=== PATIENT | male | born 1975 | race Caucasian/White ===

== ENCOUNTER 2017-12-16 01:49 | Observation (INO) | payer OTHER, SELFPAY ==
[2017-12-16] VITALS (12 sets, daily range): BP systolic 121–151; BP diastolic 64–86; PULSE 61–82; RESP 16–23; TEMP 36.6–36.9; O2SAT 92–99; BMI 51.2; BMI 50.0
--- NOTE | 2017-12-16 02:00 | EKG12_ITS ---
Test Reason : CP Blood Pressure : / mmHG Vent. Rate : 072 BPM Atrial Rate : 072 BPM P-R Int : 194 ms QRS Dur : 096 ms QT Int : 382 ms P-R-T Axes : 048 023 016 degrees QTc Int : 418 ms Normal sinus rhythm Normal ECG Confirmed by AILEEN FARMER MD ([id number]), web editor KOLE LOMBARDI ([id number]) on 12/17/2017 3:04:17 PM Referred By: EDITH Confirmed By:AILEEN FARMER MD
--- NOTE | 2017-12-16 02:00 | RAD_ITS ---
STUDY: X-RAY CHEST REASON FOR EXAM: Male, 42 years old. Chest pain TECHNIQUE: Single AP portable view of the chest. COMPARISON: None. FINDINGS: The lungs are clear and expanded. There is no demonstrated pleural abnormality. Normal size heart. Normal mediastinum and lenny. Normal visualized pulmonary arteries. Normal visualized aortic arch and descending thoracic aorta. Normal visualized thoracic spine. Normal visualized ribs, clavicles, and shoulders. There is no demonstrated abnormality of the visualized soft tissue structures of the upper abdomen. RAD/Chest 1 View (Portable) IMPRESSION: Normal x-ray examination of the chest. Electronically Signed: Amie Cheng MD at 3:15 EDT Tel , Service support ,
[2017-12-16 02:14] LABS: Absolute Lymphocyte Count 2.11 X10^3/ul (0.83-4.51); Absolute Neutrophil Count 4.2 X10^3/uL (2.0-7.7); Basophil# 0.02 X10^3/uL; Basophil% 0.3 % (0-1); Eosinophils% 2.8 % (0-5); Hematocrit 48.3 % (40-54); Hemoglobin 16.3 g/dl (13.0-16.5); Lymphocyte # 2.11 X10^3/ul (4.0); Lymphocyte % 29.8 % (19-41); Mean Corp Hgb Conc 33.7 g/gl (32-36); Mean Corpuscular Hgb 27.2 pg (27.0-32.0); Mean Corpuscular Volume 80.5 fL (80-94); Mean Platelet Vol. 9.8 fl (6.2-12.0); Monocyte# 0.58 X10^3/uL; Monocyte% 8.2 % (0-10); Neutrophil # 4.16 X10^3/uL (2.7-7.7); Neutrophil % 58.8 % (47-70); Platelet Count 181 K/mm3 (150-450); RBC Distribution Width CV 13.4 % (11.6-14.6); RBC Distribution Width SD 38.9 fl (35.1-43.9); White Blood Count 7.1 K/mm3 (4.4-11.0)
[2017-12-16 02:15] LABS: POSITIVE COUNT NO; POSITIVE DIFFERENTIAL NO; POSITIVE MORPHOLOGY NO
[2017-12-16] MEDS: Aspirin 81 MG TAB.CHEW 324 MG PO (02:17)
[2017-12-16 02:25] LABS: Anion Gap 7 (5-15); BUN 17 mg/dL (7-18); BUN/Creat Ratio 16.3 RATIO (10-20); Calcium,Total 8.9 mg/dL (8.5-10.1); Chloride 104 mmol/L (98-107); Creatinine, Serum 1.04 mg/dL (0.70-1.30); EST Glomerular Filtration Rate 82 mL/min (>60); Est Glom Filt Rate - Afr Amer 100 mL/min (>60); Estimated Creatinine Clearance 99.49 ml/min; Glucose 269 mg/dL (74-106); Potassium 4.2 mmol/L (3.5-5.1); Sodium Level 139 mmol/L (136-145)
[2017-12-16 02:47] LABS: D-Dimer Quantitative (DVT/PE) < 0.27 FEU/ug/m (0.27-0.49)
--- NOTE | 2017-12-16 03:41 | ED.VISSUMM ---
- ER Visit Summary Date of Service: 12/16/17 Chief Complaint: Chest pain History of Present Illness: The patient is a 42 M presenting with chest pain. Pain has been intermittent over the past 2 days. It is substernal. He states it occasionally radiates to his back. It is associated with nausea. Today he felt clammy with it as well. He has a history of hypertension, diabetes, hypercholesterolemia, family history of early heart disease. He is not a smoker. No PE/DVT risk factors. Physical Examination: Vitals are stable. Patient is afebrile. Alert no acute distress. HEENT exam is unremarkable. Neck is supple. Lungs are clear and equal bilaterally. Heart is regular rate and rhythm. Abdomen is soft nontender nondistended. Extremities are unremarkable. Skin is warm and dry. No focal neurologic deficit. Remainder of exam is unremarkable. Emergency Department Course and Treatment: Patient was given aspirin on arrival. EKG is sinus rate is 72 with no acute ischemic changes. Chest x-ray shows no acute process. CBC, chemistries unremarkable other than glucose 269. Troponin is negative. D-dimer negative. Patient is pain-free on reevaluation. Due to his multiple risk factors, discussed with the hospitalist for observation. Disposition: Observation Impression: Chest pain This note was generated with [employer] dictation software. It may contain incorrect words, spelling, and punctuation that were not noted in review of the chart prior to signing ED Disposition - Plan for ED Patient: Chief Complaint: Chest Pain Referrals: [facility] Doctor,Out of [Primary Care Provider] -
--- NOTE | 2017-12-16 04:33 | NURSING ---
Called ED kiln charger, Liz at this time to confirm Pt okay to come to PCU.
--- NOTE | 2017-12-16 04:46 | EKG12_ITS ---
Test Reason : REPEAT EKG Blood Pressure : / mmHG Vent. Rate : 065 BPM Atrial Rate : 065 BPM P-R Int : 186 ms QRS Dur : 102 ms QT Int : 398 ms P-R-T Axes : 053 020 011 degrees QTc Int : 413 ms Normal sinus rhythm Poor R wave progression Confirmed by SILVIA CORRALES, ABHISHEK ([id number]), editor book KOLE LOMBARDI ([id number]) on 12/20/2017 2:07:41 PM Referred By: RON Confirmed By:ABHISHEK VEGA MD
[2017-12-16 05:46] LABS: Hematocrit 46.3 % (40-54); Hemoglobin 15.9 g/dl (13.0-16.5); Mean Corp Hgb Conc 34.3 g/gl (32-36); Mean Corpuscular Hgb 27.3 pg (27.0-32.0); Mean Corpuscular Volume 79.4 fL (80-94); Mean Platelet Vol. 10.1 fl (6.2-12.0); Platelet Count 197 K/mm3 (150-450); RBC Distribution Width CV 13.5 % (11.6-14.6); RBC Distribution Width SD 38.9 fl (35.1-43.9); Red Blood Count 5.83 M/mm3 (4.6-6.2)
[2017-12-16 05:47] LABS: Scan Indicated on CBC? Y/N NO
--- NOTE | 2017-12-16 05:55 | ECHOCS_ITS ---
Reason For Study: Chest Pain Procedure This was a 2D Doppler, Color Flow transthoracic echocardiogram. Exam performed portable in patient room. Left Ventricle Normal LV size. Mild concentric left ventricular hypertrophy. Left ventricular systolic function is normal. The estimated ejection fraction is 55 %. No evidence for diastolic dysfunction. No regional wall motion abnormalities noted. Right Ventricle Normal RV size. Normal systolic function. Atria The left atrium is mildly enlarged. Normal right atrium. Mitral Valve Normal mitral valve. Tricuspid Valve Normal tricuspid valve. Aortic Valve The aortic valve is not well visualized. Pulmonic Valve The pulmonic valve is not well visualized. Great Vessels Normal aortic root. Pericardium/Pleural No pericardial effusion. Medication Diluted definity 5ml given slow IV push to enhance endocardial definition. MMode/2D Measurements & Calculations LVIDd: 5.1 cm IVSd: 1.4 cm Ao root diam: 4.2 cm LVIDs: 3.3 cm LVPWd: 1.3 cm LA dimension: 3.6 cm FS: 36.4 % LAV(MOD-sp4): 64.3 ml LA A4 area: 22.6 cm2 Time Measurements MV dec time: 0.19 sec Doppler Measurements & Calculations MV E max clemente: 100.8 cm/sec Med Peak E' Clemente: 13.1 cm/sec MV V2 max: 123.3 cm/sec MV A max clemente: 68.7 cm/sec E/E' med: 7.7 MV max P.1 mmHg MV E/A: 1.5 MV V2 mean: 60.2 cm/sec MV mean P.8 mmHg MV V2 VTI: 39.7 cm MV P1/2t max clemente: 123.3 cm/sec Ao V2 max: 143.5 cm/sec LV V1 max: 130.2 cm/sec MV P1/2t: 114.8 msec Ao max P.2 mmHg LV V1 max P.8 mmHg MV dec slope: 314.5 cm/sec2 Ao V2 mean: 99.0 cm/sec LV V1 mean P.4 mmHg MVA(P1/2t): 1.9 cm2 Ao mean P.2 mmHg LV V1 mean: 86.6 cm/sec Ao V2 VTI: 27.5 cm LV V1 VTI: 29.5 cm PA V2 max: 130.0 cm/sec Interpretation Summary Normal LV size. Mild concentric left ventricular hypertrophy. Left ventricular systolic function is normal. The estimated ejection fraction is 55 %. No evidence for diastolic dysfunction. Contrast injection was performed. Ordering Physician: Lew Moreira Performed By: Buzz Rivera RCS
[2017-12-16 06:19] LABS: BNP,B-Type NATRIURETIC PEPTIDE 10.3 pg/mL (0-100)
--- NOTE | 2017-12-16 06:24 | PCM.HP.STD ---
Problem List (1) HTN (hypertension) Status: Chronic (2) DMII (diabetes mellitus, type 2) Status: Acute History of Present Illness Date of Admission: 12/16/17 Chief Complaint: Chest pain The patient is a 42 year old male w/ h/o DMII and HTN admitted for chest pain. Pt has epigastric pain associated with belching for the past few days. Pain is burning sensation and mild. Pain is episodic and is not associated with exertion. No diaphoresis. Belching is worse with greasy food and pain is also worse with greasy food. He had a stress test about 1.5 yrs ago and it was negative. Past Medical History Past Medical History (Chronic Problems): Chronic Problems HTN (hypertension) (Chronic) Allergies celecoxib [From Celebrex] Adverse Reaction (Verified 12/16/17 02:16) Other high blood pressure red skin Home Medications: Ambulatory Orders Medication Instructions Recorded Fluticasone 0.05% [Flonase Nasal 2 spray NASAL PRN PRN 12/16/17 [place]] Glimepiride [Amaryl] 4 mg PO BID 12/16/17 Insulin NPH Human Isophane 80 unit SQ BID 12/16/17 [Novolin N] Insulin Regular, Human [Novolin R] 40 unit SC TID 12/16/17 Losartan Potassium 50 mg PO DAILY 12/16/17 Metformin(XR) [Glucophage Xr] 1,000 mg PO BID 12/16/17 Multivits,Ca,Min/Iron/FA/Lycop 1 each PO DAILY 12/16/17 [Men Under 50 Multivitamin Tab] Pravastatin [Pravachol] 80 mg PO QHS 12/16/17 Lives: Spouse/ Significant Other Smoking Status: Never smoker Alcohol: None Drugs: None - *Family History Maternal History Items: Heart Disease Review of Systems Constitutional: Denies: Chills, Fever, Weight Change HEENT: Denies: Head Aches, Sinus Congestion, Sinus Drainage Cardiovascular: Reports: Chest Pain. Denies: Palpitations Respiratory: Denies: Cough, Shortness of breath at rest, Sputum production Gastrointestinal: Reports: Abdominal Pain, Dyspepsia, Nausea. Denies: Vomiting Genitourinary: Denies: Dysuria Musculoskeletal: Denies: Joint Pain, Joint Tenderness Skin: Denies: Rash, Wounds Neurological: Denies: Numbness, Tingling, Focal weakness Psychiatric: Denies: Anxiety, Depression, Homicidal Ideations, Suicidal Ideations Hematologic/ Lymphatic: Denies: Easy Bruising, Easy Bleeding VTE Information - Inpt Only VTE Present on Admission: No VTE Mechan Device Prophylaxis: SCD's VTE Pharm Prophylaxis ordered?: Yes Patient Problems: Active and Suspected Problems DMII (diabetes mellitus, type 2) (Acute) - Physical Exam General: Alert, Oriented x3, Cooperative HEENT: Atraumatic, PERRLA, EOMI, Normocephalic Neck: Supple, No JVD, Negative Carotid Bruits Lungs: Clear to auscultation, Normal air movement Cardiovascular: Regular rate, No murmurs Abdomen: Bowel Sounds Present, Soft, Non Tender Extremities: No edema, Capillary Refill Less than 3 Seconds Skin: No rashes, No breakdown Musculoskeletal: No Tenderness to Palpation of Joints or Extremities Neurological: Cranial nerves II-XII grossly intact Psych/Mental Status: Normal Affect, Appropriate Vital Signs Temp Pulse Resp BP Pulse Ox 97.9 F 65 16 141/70 H 97 12/16/17 04:51 12/16/17 04:51 12/16/17 04:51 12/16/17 04:51 12/16/17 04:51 Oxygen Delivery Method Room Air Weight: 167.2 kg Body Mass Index (BMI) 50.0 Laboratory Tests Past 24 Hrs 12/16/17 12/16/17 12/16/17 05:05 05:05 05:05 WBC 7.0 RBC 5.83 Hgb 15.9 Hct 46.3 MCV 79.4 L MCH 27.3 MCHC 34.3 RDW 13.5 RDW Differential 38.9 Plt Count 197 MPV 10.1 Sodium Pending Potassium Pending Chloride Pending Carbon Dioxide Pending Anion Gap Pending BUN Pending Creatinine Pending Est GFR (MDRD) Af Amer Pending Est GFR (MDRD) Non-Af Pending BUN/Creatinine Ratio Pending Glucose Pending Calcium Pending Total Bilirubin Pending AST Pending ALT Pending Alkaline Phosphatase Pending Troponin I B-Natriuretic Peptide 10.3 Total Protein Pending Albumin Pending Triglycerides Pending Cholesterol Pending LDL Cholesterol Pending VLDL Cholesterol Pending HDL Cholesterol Pending TSH Pending 12/16/17 05:05 WBC RBC Hgb Hct MCV MCH MCHC RDW RDW Differential Plt Count MPV Sodium Potassium Chloride Carbon Dioxide Anion Gap BUN Creatinine Est GFR (MDRD) Af Amer Est GFR (MDRD) Non-Af BUN/Creatinine Ratio Glucose Calcium Total Bilirubin AST ALT Alkaline Phosphatase Troponin I < 0.015 B-Natriuretic Peptide Total Protein Albumin Triglycerides Cholesterol LDL Cholesterol VLDL Cholesterol HDL Cholesterol TSH Assessment/Plan All Active Problems DMII (diabetes mellitus, type 2) (Acute) 42 year old male w/ h/o DMII and HTN admitted for chest pain. 1) Chest pain: Probably epigastric pain. Heart score 4 Family h/o CAD. Will get serial trops and FLP. Will get stress test and ECHO. 2) DMII: Resume home meds. Sliding scale and accucheck. Monitor. 3) HTN: SBP 120s. Resume home meds. Monitor.
[2017-12-16 06:25] LABS: AST(SGOT) 18 U/L (15-37); Alanine Aminotransfer ALT/SGPT 41 U/L (16-61); Albumin, Serum 3.6 g/dL (3.2-5.0); Alkaline Phosphatase 53 U/L (45-117); Anion Gap 11 (5-15); BUN 19 mg/dL (7-18); BUN/Creat Ratio 21.6 RATIO (10-20); Calcium,Total 8.6 mg/dL (8.5-10.1); Chloride 105 mmol/L (98-107); Cholesterol 135 mg/dL (200); Creatinine, Serum 0.88 mg/dL (0.70-1.30); EST Glomerular Filtration Rate 100 mL/min (>60); Est Glom Filt Rate - Afr Amer 121 mL/min (>60); Estimated Creatinine Clearance 117.58 ml/min; Globulin 3.7 g/dL (2.2-4.2); Glucose 244 mg/dL (74-106); High Density Lipoprotein 41 mg/dL; Protein, Total 7.3 g/dL (6.4-8.2); Sodium Level 142 mmol/L (136-145); Triglycerides 126 mg/dL; Very Low Density Lipoprotein 25 mg/dL (5-40)
[2017-12-16] MEDS: Glimepiride 4 MG Tablet PO ×2 (10:27→17:12)
[2017-12-16] MEDS: Multivitamins,Ther W-Minerals Tablet 1 TABLET PO (10:28)
[2017-12-16] MEDS: Carvedilol 3.125 MG TABLET PO ×2 (10:28→21:29)
[2017-12-16] MEDS: Losartan Potassium 50 MG Tablet PO (10:28)
[2017-12-16] MEDS: metFORMIN HCl 1,000 MG Tablet 1000 MG PO ×2 (10:28→17:12)
[2017-12-16] MEDS: Aspirin E.C. 81 MG Tablet PO (10:28)
[2017-12-16] MEDS: Insulin NPH Human 100 UNITS/ML PEN 80 UNITS SC (10:33)
[2017-12-16] MEDS: Insulin Lispro 100 UNIT/ML INSULN.PEN 40 UNIT SC ×2 (10:43→13:03)
[2017-12-16 10:46] LABS: Bedside Glucose 307 mg/dL (70-110)
[2017-12-16 13:11] LABS: Bedside Glucose 222 mg/dL (70-110)
[2017-12-16 16:51] LABS: Bedside Glucose 133 mg/dL (70-110)
--- NOTE | 2017-12-16 18:38 | PCM.PN.HOSP ---
Patient Problems: Active and Suspected Problems DMII (diabetes mellitus, type 2) (Acute) Chest pain (Acute) Subjective: Patient denies any chest pain or epigastric pain at this time. The patient and his believe that his symptoms may actually be from GERD which has since disappeared. Vitals/I&O's: Vital Signs Temp Pulse Resp BP Pulse Ox 98.3 F 61 17 140/86 H 94 12/16/17 15:50 12/16/17 15:53 12/16/17 15:50 12/16/17 15:50 12/16/17 15:50 Oxygen Delivery Method Room Air Weight: 167.2 kg Body Mass Index (BMI) 50.0 Intake and Output for Last 24 Hours 12/14/17 12/15/17 12/16/17 23:59 23:59 23:59 Intake Total 1460 / 1460 Balance 1460 / 1460 General: Alert HEENT: Atraumatic, PERRLA, EOMI, Normocephalic Neck: Supple, No JVD, Negative Carotid Bruits Lungs: Clear to auscultation Cardiovascular: Regular rate, No murmurs, - - Non tender Abdomen: Bowel Sounds Present, Soft, Non Tender Extremities: No edema, Capillary Refill Less than 3 Seconds Skin: No rashes Musculoskeletal: No Tenderness to Palpation of Joints or Extremities Neurological: Cranial nerves II-XII grossly intact Psych/Mental Status: Normal Affect, Appropriate Laboratory Results 12/16/17 05:05: WBC 7.0, RBC 5.83, Hgb 15.9, Hct 46.3, MCV 79.4 L, MCH 27.3, MCHC 34.3, RDW 13.5, RDW Differential 38.9, Plt Count 197, MPV 10.1 12/16/17 05:05: Sodium 142, Potassium 4.0, Chloride 105, Carbon Dioxide 26.0, Anion Gap 11, BUN 19 H, Creatinine 0.88, Estim Creat Clear Calc 117.58, Est GFR (MDRD) Af Amer 121, Est GFR (MDRD) Non-Af 100, BUN/Creatinine Ratio 21.6 H, Glucose 244 H, Calcium 8.6, Total Bilirubin 1.10 H, AST 18, ALT 41, Alkaline Phosphatase 53, Total Protein 7.3, Albumin 3.6, Globulin 3.7, Albumin/Globulin Ratio 1.0, Triglycerides 126, Cholesterol 135, LDL Cholesterol 69, VLDL Cholesterol 25, HDL Cholesterol 41, TSH 2.50 12/16/17 05:05: B-Natriuretic Peptide 10.3 12/16/17 05:05: Troponin I < 0.015 12/16/17 08:05: Troponin I < 0.015 12/16/17 10:38: POC Glucose 307 H 12/16/17 13:01: POC Glucose 222 H 12/16/17 16:40: POC Glucose 133 H Current Medications Aspirin (Ecotrin) 81 mg PO DAILY@0800 [facility] Last Admin: 12/16/17 10:28 Dose: 81 mg Carvedilol (Coreg) 3.125 mg PO BID [facility] Last Admin: 12/16/17 10:28 Dose: 3.125 mg Dextrose (D50w Syringe) 0 gm IV X1 PRN; Protocol PRN Reason: Hypoglycemia [facility] Admin: 12/16/17 17:12 Dose: 4 mg Glucagon () 1 mg IM .X1 PRN PRN Reason: Hypoglycemia Insulin Human Lispro (Humalog Kwikpen (Bkc)) 0 unit SQ [facility] PRN Reason: Protocol Insulin Human NPH (Humulin N (Bkc)) [facility] Losartan Potassium (Cozaar) 50 mg PO DAILY [facility] Last Admin: 12/16/17 10:28 Dose: 50 mg Metformin HCl (Glucophage) [facility] Last Admin: 12/16/17 17:12 Dose: 1,000 mg Multivitamins/Minerals (Multivitamin With Minerals) 1 tablet PO DAILY@0800 [facility] Last Admin: 12/16/17 10:28 Dose: 1 tablet Pravastatin Sodium (Pravachol) 80 mg PO QHS [facility] Sodium Chloride () 5 - 30 ml IV UD PRN PRN Reason: SALINE FLUSH Medical Necessity - Tobacco Use Smoking Status: Never smoker Assessment/Plan All Active Problems DMII (diabetes mellitus, type 2) (Acute) Chest pain (Acute) This is a 42 year old with multiple cardiac risk factors of hypertension, diabetes and obesity who was admitted because of chest pain. 1) Chest pain Heart score 4 Family h/o CAD. Serial troponins and fasting lipids unremarkable. The patient is awaiting chemical stress test with nuclear imaging; and echocardiogram. Continue aspirin and carvedilol. Pravastatin continued. If cardiac workup is negative patient can take as needed acid suppressants. 2) DMII: Metformin and Amaryl continued Insulin regimen adjusted to NPH 30 units twice daily; and correction scale insulin. Dietary counselling 3) HTN: Cozaar and metoprolol continued. 4) DVT prophylaxis SCD. Code Visit Inpatient E&M: 90804 Subs Hosp L2
--- NOTE | 2017-12-16 18:45 | PN_ITS ---
Patient Problems: Active and Suspected Problems DMII (diabetes mellitus, type 2) (Acute) Chest pain (Acute) Subjective: Patient denies any chest pain or epigastric pain at this time. The patient and his believe that his symptoms may actually be from GERD which has since disappeared. Vitals/I&O's: Vital Signs Temp Pulse Resp BP Pulse Ox 98.3 F 61 17 140/86 H 94 12/16/17 15:50 12/16/17 15:53 12/16/17 15:50 12/16/17 15:50 12/16/17 15:50 Oxygen Delivery Method Room Air Weight: 167.2 kg Body Mass Index (BMI) 50.0 Intake and Output for Last 24 Hours 12/14/17 12/15/17 12/16/17 23:59 23:59 23:59 Intake Total 1460 / 1460 Balance 1460 / 1460 General: Alert HEENT: Atraumatic, PERRLA, EOMI, Normocephalic Neck: Supple, No JVD, Negative Carotid Bruits Lungs: Clear to auscultation Cardiovascular: Regular rate, No murmurs, - - Non tender Abdomen: Bowel Sounds Present, Soft, Non Tender Extremities: No edema, Capillary Refill Less than 3 Seconds Skin: No rashes Musculoskeletal: No Tenderness to Palpation of Joints or Extremities Neurological: Cranial nerves II-XII grossly intact Psych/Mental Status: Normal Affect, Appropriate Laboratory Results 12/16/17 05:05: WBC 7.0, RBC 5.83, Hgb 15.9, Hct 46.3, MCV 79.4 L, MCH 27.3, MCHC 34.3, RDW 13.5, RDW Differential 38.9, Plt Count 197, MPV 10.1 12/16/17 05:05: Sodium 142, Potassium 4.0, Chloride 105, Carbon Dioxide 26.0, Anion Gap 11, BUN 19 H, Creatinine 0.88, Estim Creat Clear Calc 117.58, Est GFR (MDRD) Af Amer 121, Est GFR (MDRD) Non-Af 100, BUN/Creatinine Ratio 21.6 H, Glucose 244 H, Calcium 8.6, Total Bilirubin 1.10 H, AST 18, ALT 41, Alkaline Phosphatase 53, Total Protein 7.3, Albumin 3.6, Globulin 3.7, Albumin/Globulin Ratio 1.0, Triglycerides 126, Cholesterol 135, LDL Cholesterol 69, VLDL Cholesterol 25, HDL Cholesterol 41, TSH 2.50 12/16/17 05:05: B-Natriuretic Peptide 10.3 12/16/17 05:05: Troponin I < 0.015 12/16/17 08:05: Troponin I < 0.015 12/16/17 10:38: POC Glucose 307 H 12/16/17 13:01: POC Glucose 222 H 12/16/17 16:40: POC Glucose 133 H Current Medications Aspirin (Ecotrin) 81 mg PO DAILY@0800 [facility] Last Admin: 12/16/17 10:28 Dose: 81 mg Carvedilol (Coreg) 3.125 mg PO BID [facility] Last Admin: 12/16/17 10:28 Dose: 3.125 mg Dextrose (D50w Syringe) 0 gm IV X1 PRN; Protocol PRN Reason: Hypoglycemia Glimepiride (Amaryl) [facility] Last Admin: 12/16/17 17:12 Dose: 4 mg Glucagon () 1 mg IM .X1 PRN PRN Reason: Hypoglycemia Insulin Human Lispro (Humalog Kwikpen (Bkc)) 0 unit SQ [facility] PRN Reason: Protocol Insulin Human NPH (Humulin N (Bkc)) 20 units SC [facility] Losartan Potassium (Cozaar) 50 mg PO DAILY [facility] Last Admin: 12/16/17 10:28 Dose: 50 mg Metformin HCl (Glucophage) 1,000 mg PO [facility] Last Admin: 12/16/17 17:12 Dose: 1,000 mg Multivitamins/Minerals (Multivitamin With Minerals) 1 tablet PO DAILY@0800 [facility] Last Admin: 12/16/17 10:28 Dose: 1 tablet Pravastatin Sodium (Pravachol) 80 mg PO QHS [facility] Sodium Chloride () 5 - 30 ml IV UD PRN PRN Reason: SALINE FLUSH Medical Necessity - Tobacco Use Smoking Status: Never smoker Assessment/Plan All Active Problems DMII (diabetes mellitus, type 2) (Acute) Chest pain (Acute) This is a 42 year old with multiple cardiac risk factors of hypertension, diabetes and obesity who was admitted because of chest pain. 1) Chest pain Heart score 4 Family h/o CAD. Serial troponins and fasting lipids unremarkable. The patient is awaiting chemical stress test with nuclear imaging; and echocardiogram. Continue aspirin and carvedilol. Pravastatin continued. If cardiac workup is negative patient can take as needed acid suppressants. 2) DMII: Metformin and Amaryl continued Insulin regimen adjusted to NPH 30 units twice daily; and correction scale insulin. Dietary counselling 3) HTN: Cozaar and metoprolol continued. 4) DVT prophylaxis SCD. Code Visit Inpatient E&M: 73893 Subs Hosp L2
[2017-12-16] MEDS: Pravastatin 80 MG Tablet PO (21:29)
[2017-12-16 21:36] LABS: Bedside Glucose 125 mg/dL (70-110)
[2017-12-17 03:00] VITALS: PULSE 53
[2017-12-17 03:50] VITALS: BP 152/80; PULSE 76; RESP 16; TEMP 36.7; O2SAT 97
[2017-12-17 05:09] LABS: Hematocrit 46.9 % (40-54); Mean Corp Hgb Conc 34.1 g/gl (32-36); Mean Corpuscular Hgb 26.9 pg (27.0-32.0); Mean Platelet Vol. 9.9 fl (6.2-12.0); Platelet Count 200 K/mm3 (150-450); RBC Distribution Width CV 13.7 % (11.6-14.6); RBC Distribution Width SD 39.3 fl (35.1-43.9); Red Blood Count 5.94 M/mm3 (4.6-6.2)
[2017-12-17 05:20] LABS: Prothrombin Time (Protime)PT. 12.8 SECONDS (11.7-14.9)
[2017-12-17 05:21] LABS: Partial Thromboplast Time 26.4 Seconds (24.1-36.2)
[2017-12-17 05:24] LABS: Anion Gap 10 (5-15); BUN 12 mg/dL (7-18); BUN/Creat Ratio 21.1 RATIO (10-20); Calcium,Total 8.6 mg/dL (8.5-10.1); Chloride 105 mmol/L (98-107); Creatinine, Serum 0.57 mg/dL (0.70-1.30); EST Glomerular Filtration Rate 165 mL/min (>60); Est Glom Filt Rate - Afr Amer 200 mL/min (>60); Estimated Creatinine Clearance 181.52 ml/min; Glucose 166 mg/dL (74-106); Potassium 3.8 mmol/L (3.5-5.1); Sodium Level 140 mmol/L (136-145)
[2017-12-17] MEDS: Aspirin E.C. 81 MG Tablet PO (05:43)
[2017-12-17] MEDS: Losartan Potassium 50 MG Tablet PO (05:43)
--- NOTE | 2017-12-17 05:55 | EKG12_ITS ---
Test Reason : AM EKG Blood Pressure : / mmHG Vent. Rate : 053 BPM Atrial Rate : 053 BPM P-R Int : 180 ms QRS Dur : 098 ms QT Int : 440 ms P-R-T Axes : 027 068 051 degrees QTc Int : 412 ms Sinus bradycardia Low voltage QRS Borderline ECG Confirmed by SILVIA CORRALES, ABHISHEK ([id number]), editor index KOLE LOMBARDI ([id number]) on 12/20/2017 2:05:04 PM Referred By: JUAN CARLOS Confirmed By:ABHISHEK VEGA MD
[2017-12-17 06:32] LABS: Scan Indicated on CBC? Y/N NO
[2017-12-17 07:00] VITALS: PULSE 53
[2017-12-17 07:06] LABS: Bedside Glucose 199 mg/dL (70-110)
[2017-12-17 09:14] VITALS: BP 133/76; PULSE 59; RESP 12; TEMP 36.8; O2SAT 92
--- NOTE | 2017-12-17 13:01 | STRESSREP ---
Stress Test Report Pharmacologic myocardial perfusion stress test. 42-year-old man with a history of chest pain hypertension diabetes. Medications: Aspirin Coreg Amaryl Humalog Cozaar Glucophage. Stress protocol: Resting EKG demonstrates normal sinus rhythm with a rate of 64 bpm normal intervals and noted resting blood pressure is 140/80 mmHg. 0.4 mg of regadenoson was infused per usual protocol followed by rapid intravenous saline flush injection continuous EKG monitoring was performed. The maximum heart rate attained was 90 bpm which was 51% of maximum predicted heart rate the maximum workload was 1 metabolic equivalent. At rest there were no ST or T-wave changes noted suggest ischemia peak infusion no ST or T-wave changes were noted to suggest ischemia. Myocardial perfusion protocol. 14.8 mCi of technetium 99m sestamibi was injected at rest. 0.4 mg of regadenoson was infused per usual protocol. At peak infusion 32.7 mCi of technetium 99m sestamibi was injected stress images were obtained stress and rest images were reconstructed and compared in the short axis vertical long and horizontal long axis. Gated images were also obtained. Perfusion SPECT analysis: Review of the stress images demonstrate normal uptake of tracer noted in all areas of the myocardium. The resting images similarly demonstrate normal uptake of tracer noted in all areas of the myocardium. No areas of reversibility are noted suggest ischemia and no previous infarct is noted. There is GI attenuation artifact noted. Gated SPECT analysis: The gated ejection fraction is 61%. Conclusion: Normal pharmacologic myocardial perfusion stress test. Preserved ejection fraction.
--- NOTE | 2017-12-17 13:09 | STRESSREP_ITS ---
Stress Test Report Pharmacologic myocardial perfusion stress test. 42-year-old man with a history of chest pain hypertension diabetes. Medications : Aspirin Coreg Amaryl Humalog Cozaar Glucophage. Stress protocol: Resting EKG demonstrates normal sinus rhythm with a rate of 64 bpm normal intervals and noted resting blood pressure is 140/80 mmHg. 0.4 mg of regadenoson was infused per usual protocol followed by rapid intravenous saline flush injection continuous EKG monitoring was performed. The maximum heart rate attained was 90 bpm which was 51% of maximum predicted heart rate the maximum workload was 1 metabolic equivalent. At rest there were no ST or T- wave changes noted suggest ischemia peak infusion no ST or T-wave changes were noted to suggest ischemia. Myocardial perfusion protocol. 14.8 mCi of technetium 99m sestamibi was injected at rest. 0.4 mg of regadenoson was infused per usual protocol. At peak infusion 32.7 mCi of technetium 99m sestamibi was injected stress images were obtained stress and rest images were reconstructed and compared in the short axis vertical long and horizontal long axis. Gated images were also obtained. Perfusion SPECT analysis: Review of the stress images demonstrate normal uptake of tracer noted in all areas of the myocardium. The resting images similarly demonstrate normal uptake of tracer noted in all areas of the myocardium. No areas of reversibility are noted suggest ischemia and no previous infarct is noted. There is GI attenuation artifact noted. Gated SPECT analysis: The gated ejection fraction is 61%. Conclusion: Normal pharmacologic myocardial perfusion stress test. Preserved ejection fraction.
[2017-12-17 13:26] LABS: Bedside Glucose 274 mg/dL (70-110)
[2017-12-17 13:45] VITALS: BP 126/80; PULSE 65; RESP 16; TEMP 36.8; O2SAT 95
[2017-12-17] MEDS: Glimepiride 4 MG Tablet PO (13:47)
[2017-12-17] MEDS: Carvedilol 3.125 MG TABLET PO (13:47)
[2017-12-17] MEDS: Insulin Lispro 100 UNIT/ML INSULN.PEN SQ (13:47)
[2017-12-17] MEDS: Multivitamins,Ther W-Minerals Tablet 1 TABLET PO (13:47)
[2017-12-17] MEDS: metFORMIN HCl 1,000 MG Tablet 1000 MG PO (13:47)
[2017-12-17] MEDS: Insulin NPH Human 100 UNITS/ML PEN 30 UNITS SC (13:48)
--- NOTE | 2017-12-17 14:12 | DCINST_ITS ---
- Discharge Diagnoses Current Active Problems: Current Active and Chronic Problems Chest pain (Acute) HTN (hypertension) (Chronic) DMII (diabetes mellitus, type 2) (Acute) You will use the following diet at home:: Calorie/Carbohydrate Controlled ( specify 1200, 1400, etc) - 1800 sharon Discharge Activity: Return to Normal Activity Weight Bearing Status: Full weight bearing Allergies/Adverse Reactions: Allergies celecoxib [From Celebrex] Adverse Reaction (Verified 12/16/17 02:16) Other high blood pressure red skin Medications to take at Discharge Fluticasone 0.05% [Flonase Nasal [place]] 2 spray NASAL PRN PRN 12/16/17 Glimepiride [Amaryl] 4 mg PO BID 12/16/17 Insulin NPH Human Isophane [Novolin N] 80 unit SQ BID 12/16/17 Insulin Regular, Human [Novolin R] 40 unit SC TID 12/16/17 Losartan Potassium 50 mg PO DAILY 12/16/17 Metformin(XR) [Glucophage Xr] 1,000 mg PO BID 12/16/17 Multivits,Ca,Min/Iron/FA/Lycop [Men Under 50 Multivitamin Tab] 1 each PO DAILY 12/16/17 Pravastatin [Pravachol] 80 mg PO QHS 12/16/17 Primary Care Physician: Roselyn Dhillon,Out of [Primary Care Provider] - Please follow up with your Primary Care Physician in: this week Test Results: Test results from this visit will be discussed in further detail at your follow- up appointment, if applicable.
--- NOTE | 2017-12-18 18:01 | PCM.DC.SUM ---
Discharge Date and Diagnosis - Problem List Patient Problems: Active and Suspected Problems Chest pain (Acute) Date of Admission: 12/16/17 Date of Discharge: 12/17/17 - Primary Discharge Diagnosis Active and Suspected Problems #1 musculoskeletal chest pain #2 type 2 diabetes #3 hypertension - Secondary Discharge Diagnosis Chronic Problems HTN (hypertension) (Chronic) Hospital Course and Treatment Operations: None Procedures: 2-D Echocardiogram, Nuclear stress test Summary of Care Provided: The patient is a 42 year old M who was seen in the emergency room at [facility] with a chief complaint of lower chest/epigastric pain which have been intermittent over the last 48 hours prior to being seen in the emergency room. Workup in the emergency room included an EKG which showed a normal sinus rhythm at 72 and no acute ischemic changes, chest x-ray showed no acute process, troponin was unremarkable, d-dimer was unremarkable. Chemistry was remarkable for a blood glucose of 269. Patient was placed in observation status on PCU, cardiac enzymes were cycled and these remained normal, he underwent an echocardiogram which showed no abnormalities, patient underwent a nuclear stress test which was negative for reversible ischemia. On 12/17/17, patient was seen and examined felt to be in stable condition for discharge home Discharge Activity: Return to Normal Activity Weight Bearing Status: Full weight bearing Home Medications: Medications to take at Discharge Fluticasone 0.05% [Flonase Nasal [place]] 2 spray NASAL PRN PRN 12/16/17 Glimepiride [Amaryl] 4 mg PO BID 12/16/17 Insulin NPH Human Isophane [Novolin N] 80 unit SQ BID 12/16/17 Insulin Regular, Human [Novolin R] 40 unit SC TID 12/16/17 Losartan Potassium 50 mg PO DAILY 12/16/17 Metformin(XR) [Glucophage Xr] 1,000 mg PO BID 12/16/17 Multivits,Ca,Min/Iron/FA/Lycop [Men Under 50 Multivitamin Tab] 1 each PO DAILY 12/16/17 Pravastatin [Pravachol] 80 mg PO QHS 12/16/17 Primary Care Physician: Roselyn Dhillon,Out of [Primary Care Provider] - Please follow up with your Primary Care Physician in: this week Disposition: Home Minutes spent on discharge:: 30 Patient Condition:: Stable Medical Necessity - Tobacco Use Smoking Status: Never smoker Meaningful Use Info Meaningful Use Diagnoses (Choose all that apply): None applicable Code Visit OBSV E&M: 75723 Observation care discharge
== END 2017-12-17 14:12 | disposition home or self-care (01) ==
LOC: ED 03:34 → PCU 04:21
PROVIDERS: Hospitalist; Admitting Provider Internal Medicine; Emergency Provider Emergency Medicine; Visit Provider Internal Medicine
DX: R07.89 Other chest pain (principal); E11.9 Type 2 diabetes mellitus without complications; I10 Essential (primary) hypertension; E66.9 Obesity, unspecified; Z68.43 Body mass index [BMI] 50.0-59.9, adult; Z71.3 Dietary counseling and surveillance; E78.00 Pure hypercholesterolemia, unspecified; Z82.49 Family history of ischemic heart disease and other diseases of the circulatory system; R14.2 Eructation; Z79.899 Other long term (current) drug therapy; Z79.4 Long term (current) use of insulin
CPT/HCPCS: 36415; 71045; 78452; 80048; 80053; 80061; 82962; 83880; 84443; 84484; 85025; 85027; 85379; 85610; 85730; 93005; 93017; 93306; 97802; 99218; 99285; A9500; Q9957; A4216; C8929; G0378; J2785

== ENCOUNTER 2021-07-02 15:52 | Emergency (ER) | payer MEDICAID, SELFPAY ==
[2021-07-02 15:53] VITALS: BP 166/89; PULSE 68; RESP 16; TEMP 37; O2SAT 96; BMI 48.8
--- NOTE | 2021-07-02 16:13 | EKG12_ITS ---
Test Reason : CP Blood Pressure : / mmHG Vent. Rate : 065 BPM Atrial Rate : 065 BPM P-R Int : 226 ms QRS Dur : 104 ms QT Int : 386 ms P-R-T Axes : 069 025 019 degrees QTc Int : 401 ms Poor data quality, interpretation may be adversely affected Sinus rhythm with 1st degree A-V block Otherwise normal ECG Confirmed by DIONISIO CORRALES, MICHAEL ([id number]), makeup editor TIM OSBORN ([id number]) on 07/04/2021 10:50:18 A M Referred By: SANDRA/MIKI Confirmed By:SHASHI NICHOLE MD
--- NOTE | 2021-07-02 16:20 | RAD_ITS ---
STUDY: X-RAY CHEST REASON FOR EXAM: Male, 45 years old. LEFT CHEST BURNING, INTERMITTENT. HEADACHE AT BASE OF HEAD. TECHNIQUE: AP COMPARISON: None. FINDINGS: The lungs are clear and expanded. There is no demonstrated pleural abnormality. Normal size heart. Normal mediastinum and lenny. Normal visualized pulmonary arteries. Normal visualized aortic arch and descending thoracic aorta. Normal visualized thoracic spine. Normal visualized ribs, clavicles, and shoulders. There is no demonstrated abnormality of the visualized soft tissue structures of the upper abdomen. RAD/Chest 1 View (Portable) IMPRESSION: Nonacute portable x-ray examination of the chest. Electronically Signed: Jose Sarabia MD (Brooks) at 16:32 EST , Service support ,
[2021-07-02 16:24] LABS: Absolute Lymphocyte Count 1.47 X10^3/uL (0.83-4.51); Absolute Neutrophil Count 7.1 X10^3/uL (2.0-7.7); Basophil# 0.04 X10^3/uL; Basophil% 0.4 % (0-1); Eosinophil# 0.16 X10^3/uL; Eosinophils% 1.7 % (0-5); Hematocrit 50.4 % (40-54); Hemoglobin 16.3 g/dL (13.0-16.5); Lymphocyte # 1.47 X10^3/ul (0.83-4.51); Lymphocyte % 15.5 % (19-41); Mean Corp Hgb Conc 32.3 g/dL (32-36); Mean Corpuscular Volume 80.4 fL (80-94); Mean Platelet Vol. 9.7 fl (6.2-12.0); Monocyte# 0.66 X10^3/uL; NRBC Flagged by Analyzer 0 % (0-5); Neutrophil % 75.1 % (47-70); Platelet Count 237 K/mm3 (150-450); RBC Distribution Width CV 13.2 % (11.6-14.6); RBC Distribution Width SD 37.7 fl (35.1-43.9); Red Blood Count 6.27 M/mm3 (4.6-6.2); White Blood Count 9.5 K/mm3 (4.4-11.0)
[2021-07-02] MEDS: Mag Hydrox/Al Hydrox/Simeth 30 ML UDC PO (16:24)
[2021-07-02] MEDS: 0.9% Normal Saline 1,000 ML 1000 ML IV (16:24)
[2021-07-02 16:39] LABS: Anion Gap 6 (5-15); BUN 14 mg/dL (7-18); BUN/Creat Ratio 18.6 RATIO (10-20); Calcium,Total 9.7 mg/dL (8.5-10.1); Chloride 104 mmol/L (98-107); Creatinine, Serum 0.75 mg/dL (0.70-1.30); EST Glomerular Filtration Rate 118 mL/min (>60); Est Glom Filt Rate - Afr Amer 143 mL/min (>60); Estimated Creatinine Clearance 133.64 ml/min; Glucose 137 mg/dL (74-106); Potassium 3.9 mmol/L (3.5-5.1); Sodium Level 139 mmol/L (136-145); Troponin-I HS 4 pg/mL (3.0-78.0)
--- NOTE | 2021-07-02 17:10 | EDS_ITS ---
HPI History of Present Illness Chief Complaint: Chest Pain Informant: patient Onset/Context/Timing Onset: Yesterday Context: Gradual Onset Timing: Intermittent Quality: Burning Current Severity: Gone Maximum Severity: Moderate Narrative Narrative: Patient presents with 1 week history of headache and 2 days of burning chest pain. He complains of headache at the base of his skull. He has had some neck problems recently. He states what really brought him to the hospital today was because of the intermittent burning chest pain. This has been ongoing for the past 2 days. He is currently on Pepcid and previously had been on Protonix. [facility] Medical History Chest pain Diabetes High cholesterol Hypertension Irregular heart beat Home Medications fluticasone propionate 2 spray NASAL PRN PRN 12/16/17 [History Last Taken Unknown] glimepiride 4 mg PO BID 12/16/17 [History Last Taken 12/15/17] insulin NPH isoph U-100 human [Novolin N NPH U-100 Insulin] 80 unit SQ BID 12/16/17 [History Last Taken 12/15/17] insulin regular human [Novolin R Regular U-100 Insuln] 40 unit SUBCUT TID 12/16/17 [History Last Taken 12/15/17] losartan 50 mg PO DAILY 12/16/17 [History Last Taken 12/15/17] metformin 1,000 mg PO BID 12/16/17 [History Last Taken 12/15/17] mv,Ca,iwh-nnxm-YO-lycopene [Men Under 50 Multivitamin] 1 ea PO DAILY 12/16/17 [History Last Taken 12/15/17] pravastatin 80 mg PO QHS 12/16/17 [History Last Taken 12/15/17] Allergy/AdvReac Type Severity Reaction Status Date / Time celecoxib [From Celebrex] AdvReac Other Verified 07/02/21 15:55 Social History Smoking Status: Never smoker ROS ROS ED Constitutional Constitutional ED: Denies chills or fever(s) Eyes Eyes: Denies change in vision ENT ENT ED: Denies sore throat Cardiovascular Cardiovascular: Reports chest pain and other Details: Burning sensation left chest. Respiratory/Chest Respiratory/Chest: Denies cough or dyspnea Gastrointestinal Gastrointestinal: Reports other; Denies abdominal pain, diarrhea, nausea or vomiting Genitourinary Genitourinary ED: Denies dysuria Musculoskeletal Musculoskeletal: Denies back pain Integumentary Denies rash Neurologic Neurologic: Reports headache(s); Denies weakness Allergic/Immunologic Allergic/Immunologic ED: Denies urticaria EXAM Physical Exam Const Vital Signs: 07/02/21 15:53 07/02/21 16:02 Temperature 98.6 F Temperature Source Temporal Pulse Rate 68 Respiratory Rate 16 Respiratory Effort Normal Non-Labored Blood Pressure 166/89 H Blood Pressure Mean 114 Pulse Ox 96 Oxygen Delivery Method Room Air Positive well nourished and well developed General Appearance ED: well developed HEENT Reports normocephalic and head/scalp atraumatic Eyes PERRL and EOMs intact bilaterally Neck supple Chest Wall inspection of chest normal and palpation of chest normal Resp normal respiratory effort and clear to auscultation bilaterally Cardio regular rate and regular rhythm GI normal to inspection, nondistended, normoactive bowel sounds and non-tender Palpation: soft Extremity normal to inspection Neuro oriented x3 and no sensory deficits noted Sensorium / Orientation: alert Motor Exam: strength 5/5 throughout Psych mental status grossly normal Skin no rashes or lesions noted MDM MDM MDM Narrative Medical decision making narrative: Patient given GI cocktail. Lab work, EKG, chest x-ray obtained. Lab Data Attestation: I reviewed the patient's lab results. Labs: Laboratory Results - last 24 hr 07/02/21 07/02/21 16:05 16:05 WBC 9.5 RBC 6.27 H Hgb 16.3 Hct 50.4 MCV 80.4 MCH 26.0 L MCHC 32.3 RDW Std Deviation 37.7 RDW Coeff of Vanessa 13.2 Plt Count 237 MPV 9.7 Immature Gran % (Auto) 0.300 Neut % (Auto) 75.1 H Lymph % (Auto) 15.5 L Citrus % (Auto) 7.0 Eos % (Auto) 1.7 Baso % (Auto) 0.4 Absolute Neuts (auto) 7.1 Absolute Lymphs (auto) 1.47 Nucleated RBC % 0 Sodium 139 Potassium 3.9 Chloride 104 Carbon Dioxide 29.0 Anion Gap 6 BUN 14 Creatinine 0.75 Estim Creat Clear Calc 133.64 Est GFR (MDRD) Af Amer 143 Est GFR (MDRD) Non-Af 118 BUN/Creatinine Ratio 18.6 Glucose 137 H Calcium 9.7 Troponin I High Sens 4 Radiography Chest X-Ray - ED: 1 View, Read by ED Physician, Normal, Heart, Lungs and Mediastinum Diagnostic Testing: Clinical Impression(s) from Imaging Studies Chest X-Ray 07/02/21 16:20 IMPRESSION: Nonacute portable x-ray examination of the chest. Electronically Signed: Jose Sarabia MD ([place]) at 16:32 EST , Service support , EKG Initial EKG: Attestation: I personally reviewed and interpreted this EKG as follows: Interpretation: Sinus Rhythm (Sinus at 65 with no acute ischemia.) Treatment and Re-Evaluation Comments:: On repeat evaluation patient resting comfortably. He has had no burning chest pain while the emergency room. He is reassured with the negative cardiac work-up. Patient did have his Protonix refilled today and will continue this at home. Return instructions provided. Discharge Plan Triage Chief Complaint: Chest Pain ED Provider: Rebecca Monteiro Dx/Rx/DC Orders Clinical Impression: Cephalgia, Atypical chest pain Instructions: ED Chest Pain, Noncardiac Prescriptions: No Action losartan 50 MG tablet 50 mg PO DAILY RF: 0 glimepiride 2 MG tablet 4 mg PO BID RF: 0 pravastatin 80 MG tablet 80 mg PO QHS RF: 0 insulin regular human [Novolin R Regular U-100 Insuln] 100 UNIT/ML Ml 40 unit subcut TID RF: 0 insulin NPH isoph U-100 human [Novolin N NPH U-100 Insulin] 100 UNIT/ML Vial 80 unit SQ BID RF: 0 mv,Ca,xpw-bdos-UT-lycopene [Men Under 50 Multivitamin] 1 EACH tablet 1 ea PO DAILY RF: 0 fluticasone propionate 1 SPRAY Nasal.Sry 2 spray NASAL PRN PRN (Reason: Congestion) RF: 0 metformin 500 MG tablet 1,000 mg PO BID RF: 0 Primary Care Provider: [facility] Doctor,Out of Referrals: [facility] Doctor,Out of [Primary Care Provider] - 1 Week if not improving Disposition Disposition: Home, Self Care
[2021-07-02 17:22] VITALS: BP 149/69; PULSE 67; RESP 14; O2SAT 97
== END 2021-07-02 17:22 | disposition home or self-care (01) ==
PROVIDERS: Emergency Provider Emergency Medicine; Visit Provider Emergency Medicine
DX: R51.9 Headache, unspecified (principal); R07.89 Other chest pain
CPT/HCPCS: 71045; 80048; 84484; 85025; 93005; 96360; 99285; J7030; A4216